=== PATIENT | female | born 1960 | race Caucasian/White ===

== ENCOUNTER 2017-11-28 12:36 | Emergency (ER) | payer BC ==
[2017-11-28 12:45] VITALS: BP 121/64
--- NOTE | 2017-11-28 13:07 | UC ---
Eye Complaint HPI - HPI Summary HPI Summary: awoke this am with feeling of irritation in R upper eye lid. it was red and she had a film over eye. she applied warm soak and felt better states feeling a bit better now - History of Current Complaint Chief Complaint: UCEye Stated Complaint: EYE IRRITATION Time Seen by Provider: 11/28/17 12:53 Hx Obtained From: Patient ?: No Onset/Duration: Sudden Onset Severity Initially: Mild Severity Currently: Mild Pain Intensity: 2 Location of Injury: Eye Lid (upper) Character: Dull Aggravating Factor(s): Nothing Alleviating Factor(s): Nothing Associated Signs And Symptoms: Positive: Drainage (Clear). 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; colonoscopy 15 years ago normal exam; - Family History Known Family History: Positive: None - Social History Occupation: Employed Full-time Alcohol Use: None Alcohol Amount: recovering etohism Substance Use Type: None Smoking Status (MU): Never Smoked Tobacco Review of Systems Constitutional: Negative Skin: Negative Eyes: Drainage, Eye Redness ENT: Negative Respiratory: Negative Cardiovascular: Negative Neurological: Negative Psychological: Negative Is Patient Immunocompromised?: No All Other Systems Reviewed And Are Negative: Yes Physical Exam Triage Information Reviewed: Yes Appearance: Well-Appearing, No Pain Distress, Well-Nourished Vital Signs: Initial Vital Signs Temp 98.6 F 11/28/17 12:43 Pulse 72 11/28/17 12:43 Resp 12 11/28/17 12:43 BP 121/64 11/28/17 12:43 Pulse Ox 99 11/28/17 12:43 Vital Signs Reviewed: Yes Eyes: Positive: Conjunctiva Clear - no discharge, upper R eye lid mildly erythemic and swollen. Negative: Discharge ENT Exam: Normal Respiratory Exam: Normal Cardiovascular Exam: Normal Neurological Exam: Normal Psychological Exam: Normal Skin Exam: Normal Eye Complaint Course/Dx - Differential Dx/Diagnosis Differential Diagnosis/HQI/PQRI: Conjunctivitis, Corneal Abrasion, Foreign Body Provider Diagnoses: upper eyelid irritation Discharge - Sign-Out/Discharge Documenting (check all that apply): Discharge - Discharge Plan Condition: Good Disposition: HOME Prescriptions: Ciprofloxacin 0.3% OPTH.SARA* [Cipro 0.3% Opth*] 1 drop RIGHT EYE Q4H #1 btl Patient Education Materials: Conjunctivitis (ED) Referrals: Robin Durant MD [Primary Care Provider] - 2 Days (if no better) Additional Instructions: apply warm soaks to eye 4-6 times a day use eye drops as prescribed if drainage or redness worsens report worsening - Billing Disposition and Condition Condition: GOOD Disposition: HOME
== END 2017-11-28 13:10 | disposition home or self-care (01) ==
LOC: UCEAST 12:36
DX: H01.9 Unspecified inflammation of eyelid (principal)
CPT/HCPCS: 99212; G0463

== ENCOUNTER 2018-09-14 10:08 | Emergency (ER) | payer BC ==
--- NOTE | 2018-09-14 11:41 | UC ---
Skin Complaint HPI - HPI Summary HPI Summary: 58 yo female presents with right lateral thigh swelling noticed this morning. She tells me that early this morning while in bed she noticed some discomfort to this area. When she felt the area she noticed some swelling. Thinks it may be warm to touch. She denies injury, but did have a massage yesterday and pt says that she did have the therapist work on her right hip a lot due to hx of pain. She is going to [place] soon and is concerned about this area. Denies hx of blood clots, injury, recent travel, SOB, chest pain. - History of Current Complaint Chief Complaint: UCLowerExtremity Time Seen by Provider: 09/14/18 11:41 Stated Complaint: THIGH SWELLOW WARM TO THE TOUCH Hx Obtained From: Patient Onset/Duration: Sudden Onset Onset Severity: Moderate Current Severity: Moderate Pain Intensity: 8 Pain Scale Used: 0-10 Numeric - Allergy/Home Medications Allergies/Adverse Reactions: Allergies Allergy/AdvReac Type Severity Reaction Status Date / Time bee venom protein (honey bee) Allergy Swelling Verified 09/14/18 10:29 Home Medications: Home Medications NK [No Home Medications Reported] 09/14/18 [History Confirmed 09/14/18] PMH/Surg Hx/FS Hx/Imm Hx - Additional Past Medical History Additional PMH: None - Surgical History Surgical History: Yes Surgery Procedure, Year, and Place: wisdom teeth extraction; 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; colonoscopy 15 years ago normal exam; - Family History Known Family History: Positive: None - Social History Occupation: Employed Full-time Lives: With Family Alcohol Use: None Alcohol Amount: recovering etohism Substance Use Type: None Smoking Status (MU): Never Smoked Tobacco Review of Systems All Other Systems Reviewed And Are Negative: Yes Constitutional: Positive: Negative Skin: Positive: Other - Swelling right thigh Respiratory: Positive: Negative Cardiovascular: Positive: Negative Neurovascular: Positive: Negative Musculoskeletal: Positive: Negative Neurological: Positive: Negative Psychological: Positive: Negative Physical Exam - Summary Physical Exam Summary: GENERAL: NAD. WDWN. No pain distress. SKIN: RIGHT THIGH: Mild edema to lateral thigh approx 7.0cm in diameter. TTP. No erythema, warmth, or ecchymosis. No open wound. NECK: Supple. Nontender. No lymphadenopathy. CHEST: No accessory muscle use. Breathing comfortably and in no distress. CV: Pulses intact. Cap refill <2seconds NEURO: Alert. PSYCH: Age appropriate behavior. Triage Information Reviewed: Yes Vital Signs: Initial Vital Signs Temp 98 F 09/14/18 10:26 Pulse 85 09/14/18 10:26 Resp 19 09/14/18 10:26 BP 128/75 09/14/18 10:26 Pulse Ox 100 09/14/18 10:26 Vital Signs Reviewed: Yes Course/Dx - Course Course Of Treatment: US: FINDINGS: Normal fatty and muscular tissues noted. There is a reniform hypoechoic nodule. along the subcutaneous soft tissue which may represent a small lymph node measuring 0.7 x. 0.3 x 0.5. There is no loculated fluid collection to suggest hematoma or abscess. IMPRESSION: NO LOCULATED FLUID COLLECTION TO SUGGEST HEMATOMA OR ABSCESS. I suspect this area is tissue inflammation/edema from her massage yesterday. Advised to apply a cool compress and monitor the area. If her symptoms do not improve or if she develops new symptoms to be rechecked. - Diagnoses Provider Diagnosis: Soft tissue swelling Discharge - Sign-Out/Discharge Documenting (check all that apply): Patient Departure All imaging exams completed and their final reports reviewed: Yes - Discharge Plan Condition: Stable Disposition: HOME Patient Education Materials: Contusion in Adults (ED) Referrals: Robin Durant MD [Primary Care Provider] - Additional Instructions: If you develop a fever, shortness of breath, chest pain, new or worsening symptoms - please call your PCP or go to the ED. Apply ice to the area and monitor - if it enlarges or becomes more painful, please be rechecked - Billing Disposition and Condition Condition: STABLE Disposition: Home
[2018-09-14 12:47] VITALS: BP 110/69
== END 2018-09-14 13:17 | disposition home or self-care (01) ==
LOC: UCEAST 10:08
DX: M79.89 Other specified soft tissue disorders (principal)
CPT/HCPCS: 99211; G0463